=== PATIENT | female | born 1970 | race Caucasian/White ===

== ENCOUNTER 2017-01-10 06:33 | Day surgery (SDC) | payer BC ==
[2017-01-06 19:26] VITALS: BMI 24.9
--- NOTE | 2017-01-10 06:18 | HP ---
History & Physical Update - History History: No Change - Physical Physical: No Change - Assessment Assessment: No Change - Plan Plan: No Change
[~2017-01-10 06:33] MED LIST: ACETYLCHOLINE 1:100 INTRA-OCUL 20 MG/2 ML KIT IO ONE; BSS (NA/CA/MG/K) BALANCED SALT SOLUTION OPHTH SOLN 15 ML BOTTLE OS ONE; CHONDROITIN SU A/HYALUR SOD 1 KIT IO ONE; EPINEPHrine/PF 1 MG/1 ML (1:1,000) AMPULE SQ ONE; LIDOCAINE HCL 1% PRESERVATIVE FREE - 30ML VIAL IO ONE; POVIDONE-IODINE 5% OPHTHALMIC PREP 30 ML SOLUTION OS ONE; TETRACAINE 0.5% OPHTH SOLN 2 ML BOTTLE OS ONE; TOBRA 0.3%/DEXAMETH 0.1% OPHTHALMIC SUSP 2.5 ML BTL TP ONE
[2017-01-10] MEDS: MOXIFLOXACIN HCL 0.5% OPHTHALMIC 3 ML BOTTLE OP SCH ×3 (07:00→07:30)
[2017-01-10] MEDS: TROPICAMIDE 1% OPHTH SOLN 15 ML BOTTLE OP SCH ×3 (07:00→07:30)
[2017-01-10] MEDS: PHENYLEPHRINE 2.5% OPHTH SOLN 15 ML BOTTLE OP SCH ×3 (07:00→07:30)
[2017-01-10] MEDS: CYCLOPENTOLATE HCL 1% OPHTH SOLN 2 ML BOTTLE OP SCH ×3 (07:00→07:30)
[2017-01-10] MEDS ORDERED: TOBRA 0.3%/DEXAMETH 0.1% OPHTHALMIC SUSP 2.5 ML BTL ONE (07:13)
[2017-01-10] MEDS ORDERED: EPINEPHrine/PF 1 MG/1 ML (1:1,000) AMPULE ONE (07:13)
[2017-01-10] MEDS ORDERED: TETRACAINE 0.5% OPHTH SOLN 2 ML BOTTLE ONE (07:14)
[2017-01-10] MEDS ORDERED: LIDOCAINE HCL/PF 1% SDV 5ML VIAL ONE (07:14)
[2017-01-10] MEDS ORDERED: POVIDONE-IODINE 5% OPHTHALMIC PREP 30 ML SOLUTION ONE (07:14)
[2017-01-10 07:34] VITALS: TEMP 98
[2017-01-10] MEDS ORDERED: MIDAZOLAM HCL 2 MG/2 ML SINGLE DOSE VIAL ONE ×2 (07:57→08:08)
[2017-01-10] MEDS ORDERED: TETRACAINE 0.5% OPHTH SOLN 2 ML BOTTLE OS ONE (08:11)
[2017-01-10] MEDS ORDERED: POVIDONE-IODINE 5% OPHTHALMIC PREP 30 ML SOLUTION OS ONE (08:13)
[2017-01-10] MEDS ORDERED: BSS (NA/CA/MG/K) BALANCED SALT SOLUTION OPHTH SOLN 15 ML BOTTLE OS ONE (08:18)
[2017-01-10] MEDS ORDERED: LIDOCAINE HCL 1% PRESERVATIVE FREE - 30ML VIAL IO ONE (08:19)
[2017-01-10] MEDS ORDERED: CHONDROITIN SU A/HYALUR SOD 1 KIT IO ONE (08:19)
[2017-01-10] MEDS ORDERED: EPINEPHrine/PF 1 MG/1 ML (1:1,000) AMPULE SQ ONE (08:19)
[2017-01-10] MEDS ORDERED: ACETYLCHOLINE 1:100 INTRA-OCUL 20 MG/2 ML KIT IO ONE (08:57)
[2017-01-10] MEDS ORDERED: TOBRA 0.3%/DEXAMETH 0.1% OPHTHALMIC SUSP 2.5 ML BTL TP ONE (08:59)
[2017-01-10] MEDS ORDERED: acetaZOLAMIDE 250 MG TABLET ONE (09:18)
[2017-01-10] MEDS ORDERED: ACETAMINOPHEN 325 MG TABLET (FP) ONE (09:21)
[2017-01-10] MEDS ORDERED: ACETYLCHOLINE 1:100 INTRA-OCUL 20 MG/2 ML KIT ONE (10:01)
[2017-01-10 11:43] VITALS: BP 119/65; PULSE 67
--- NOTE | 2017-01-11 00:18 | OP ---
DATE OF OPERATION: 01/10/2017 SURGEON: Ilia Lara M.D. PREOPERATIVE DIAGNOSIS: Cataract, left eye. OPERATION: Phacoemulsification and intraocular lens implantation left eye. POSTOPERATIVE DIAGNOSIS: Cataract, left eye. ANESTHESIA: Topical. COMPLICATIONS: None. BLOOD LOSS: None. SPECIMEN: None. BRIEF HISTORY: The patient is a 46-year-old woman with a past medical history of diabetes who presented with decreased vision in the left eye down to 20/400 due to a 1 to 2+ nuclear sclerotic lens with temporal anterior cortical changes and a posterior subcaspular cataract. The patient also has a history of diabetic retinopathy for which she has had intravitreal injections. After the risks, benefits, and alternatives to cataract surgery were discussed with the patient she consented to surgery for the left eye. DESCRIPTION OF PROCEDURE: The patient was brought to the operating room and prepped and draped in the usual sterile fashion. An eyelid speculum was inserted in the left eye. Paracentesis was made, and the anterior chamber was inflated with operative lidocaine. This was followed by injection of Viscoat. A groove was made in the supratemporal clear cornea, which was tunneled forward with a crescent blade. The anterior chamber was entered with a 2.75 keratome. The cystotome was used to make an incision in the center of the capsule and a continuous curvilinear capsulorrhexis was created. The lens was hydrodissected until it was found to rotate freely within the capsular bag. Phacoemulsification was then used to remove the lens in its entirety. At this point it was noted that there was a localized posterior capsular tear in the area of the wound. There appeared to be no vitreous from this area. Irrigation and aspiration was done. The anterior chamber and sulcus area were refilled with Provisc, and a 22.0 diopter MA60AC lens was folded and placed in sulcus without incident. Irrigation and aspiration to remove residual viscoelastic. The wound was stromally hydrated. Two 10-0 nylon sutures were placed at the wound. Miochol was injected into the eye and the pupil was found to constrict round with no peaking. The wound was found to be watertight and the eye was in appropriate pressure. The eyelid speculum was removed from the eye. Tobradex drops and a clear shield were placed over the left eye. The patient was transferred to the recovery room in stable condition and will follow up tomorrow. Donn [id number] MTDD
== END 2017-01-10 11:43 | disposition home or self-care (01) ==
LOC: JASU-SURG 06:33
PROVIDERS: ATTEND Ophthalmology
PROC: 08RK3JZ Replacement of Left Lens with Synthetic Substitute, Percutaneous Approach (ICD-10-PCS; principal; 2017-01-10 08:00)
DX: H25.12 Age-related nuclear cataract, left eye (principal); E11.319 Type 2 diabetes mellitus with unspecified diabetic retinopathy without macular edema
CPT/HCPCS: 84703

== ENCOUNTER 2017-10-02 14:30 | Emergency (ER) | payer BC ==
[2017-10-02 14:42] VITALS: TEMP 98.3; BMI 26.8
--- NOTE | 2017-10-02 14:42 | PDOC ---
Rapid Medical Evaluation Time Seen by Provider: 10/02/17 14:40 Medical Evaluation: Allergies Allergy/AdvReac Type Severity Reaction Status Date / Time morphine Allergy Intermediate Hives Verified 10/02/17 14:37 10/02/17 14:41 Pt presents to the ED: shaky and anxious Pt on brief exam: Tachy 119, other VSS Pt ordered for : tsh, cbc, ua,ekg Pt to proceed to the ED Discharge Disposition - Diagnosis Shakiness - Referrals - Patient Instructions - Post Discharge Activity
[2017-10-02 15:03] LABS: URINE APPEARANCE CLEAR; URINE BILIRUBIN NEGATIVE (NEGATIVE); URINE BLOOD NEGATIVE (NEGATIVE); URINE COLOR COLORLESS; URINE GLUCOSE (UA) 3+ (NEGATIVE); URINE KETONE TRACE (NEGATIVE); URINE LEUK ESTERASE NEGATIVE (NEGATIVE); URINE NITRITE NEGATIVE (NEGATIVE); URINE PROTEIN NEGATIVE (NEGATIVE); URINE UROBILINOGEN NEGATIVE mg/dL (0.2-1.0)
[2017-10-02 15:11] LABS: BASO % 0.9 % (0-2.0); EOS % 2.1 % (0-4.5); HEMATOCRIT 44.1 % (32.4-45.2); HEMOGLOBIN 14.1 GM/dL (10.7-15.3); LYMPH % 28.3 % (8-40); MCH 27.3 pg (25.7-33.7); MCHC 32.1 g/dl (32.0-36.0); MEAN CELL VOLUME 85.3 fl (80-96); MEAN PLT VOLUME 9.2 fl (7.5-11.1); MONO % 7.5 % (3.8-10.2); NEUT % 61.2 % (42.8-82.8); PLATELET COUNT 196 K/MM3 (134-434); RBC 5.17 M/mm3 (3.60-5.2); RDW 16.6 % (11.6-15.6); WHITE BLOOD COUNT 7.2 K/mm3 (4.0-10.0)
[2017-10-02 15:26] LABS: ALBUMIN 4.1 g/dl (3.4-5.0); ANION GAP 13 (8-16); BLOOD UREA NITROGEN 27 mg/dL (7-18); CALCIUM 9.8 mg/dL (8.5-10.1); CHLORIDE 100 mmol/L (98-107); CO2 24 mmol/L (21-32); CREATININE 0.8 mg/dL (0.55-1.02); GLUCOSE,RANDOM 118 mg/dL (74-106); POTASSIUM 3.8 mmol/L (3.5-5.1); SGOT/AST 28 U/L (15-37); SODIUM 137 mmol/L (136-145); TOT PROT 8.3 g/dl (6.4-8.2)
[2017-10-02 15:57] LABS: ALK PHOS 105 U/L (45-117); BILIRUBIN,TOTAL 0.3 mg/dL (0.2-1.0); SGPT/ALT 49 U/L (12-78)
--- NOTE | 2017-10-02 16:07 | PDOC ---
History of Present Illness <Cristhian Joshua - Last Filed: 10/02/17 16:02> - General History Source: Patient Exam Limitations: No Limitations - History of Present Illness Initial Comments: 10/02/17 16:19 The patient is a 46 year old female with a significant PMH of diabetes who presents to the emergency department complaining of anxiety, jitters and lightheadedness since approximately 1PM today. The patient reports she had similar symptoms in addition to generalized malaise on 09/22/17 prompting her to take one week off from work and was returning to work today. The patient states she has been drinking fluids and eating soups during that time. The patient states she was in her usual state of health until 1PM today. The patient states she feels comfortable at home and reports no other stressors aside from work. The patient notes she has been feeling stressed at work since this is a busy time of year. The patient states she has had panic attacks in the past that resolved on their own. The patient denies LOC, chest pain, shortness of breath, headache and dizziness. Denies fever, chills, nausea, vomit , diarrhea and constipation. Denies dysuria, frequency, urgency and hematuria. The patient reports her sister has a history of depression but no other significant family history noted. The patient states she sees an refractory repairer regularly and was told her thyroid levels were normal. Allergies: NKA Past surgical history: None reported. Social history: No reported alcohol, drug, or cigarette use, PCP: Dr. Sierra <Sandra Lieberman - Last Filed: 10/02/17 16:38> - General Chief Complaint: Weakness Stated Complaint: ANXIETY/WEAKNESS Time Seen by Provider: 10/02/17 14:40 Past History - Past Medical History COPD: No Diabetes: Yes (type 2) - Surgical History Cholecystectomy: Yes - Suicide/Smoking/Psychosocial Hx Smoking History: Never smoked Have you smoked in the past 12 months: No Hx Alcohol Use: No Drug/Substance Use Hx: No <Cristhian Joshua - Last Filed: 10/02/17 16:02> <Sandra Lieberman - Last Filed: 10/02/17 16:38> - Past Medical History Allergies/Adverse Reactions: Allergies Allergy/AdvReac Type Severity Reaction Status Date / Time morphine Allergy Intermediate Hives Verified 10/02/17 14:37 Home Medications: Ambulatory Orders Multivitamin [One-A-Day Essential] 1 each PO DAILY #0 tablet 12/27/13 Biotin 1,000 mcg PO DAILY 01/06/17 Canagliflozin [Invokana] 300 mg PO ACBK 01/06/17 Glimepiride [Amaryl] 1 mg PO HS 01/06/17 Sitagliptin Phos/Metformin HCl [Janumet 50-1,000 mg Tablet] 1 each PO BID Alprazolam [Xanax] 0.25 mg PO Q8H PRN #7 tablet MDD 3 10/02/17 Review of Systems - Review of Systems Constitutional: No: Chills, Fever, Night Sweats, Unintentional Wgt. Loss HEENTM: No: Nose Congestion, Throat Swelling Respiratory: No: Cough, Shortness of Breath Cardiac (ROS): Yes: Palpitations. No: Chest Pain, Syncope ABD/GI: No: Diarrhea, Vomiting : No: Burning, Hematuria Neurological: No: Headache, Tingling, Weakness Psychiatric: Yes: Anxiety. No: Depression Endocrine: No: Unexplained Weight Gain, Unexplained Weight Loss All Other Systems: Reviewed and Negative <Cristhian Joshua - Last Filed: 10/02/17 16:02> *Physical Exam - Vital Signs Last Vital Signs Temp Pulse Resp BP Pulse Ox 98.3 F 119 H 19 155/95 100 10/02/17 14:38 10/02/17 14:38 10/02/17 14:38 10/02/17 14:38 10/02/17 14:38 <Cristhian Joshua - Last Filed: 10/02/17 16:02> - Vital Signs Last Vital Signs Temp Pulse Resp BP Pulse Ox 98.3 F 119 H 19 155/95 100 10/02/17 14:38 10/02/17 14:38 10/02/17 14:38 10/02/17 14:38 10/02/17 14:38 - Physical Exam Comments: 10/02/17 16:20 GENERAL: The patient is awake, alert, and fully oriented, in no acute distress. HEAD: Normal with no signs of trauma. EYES: Pupils equal, round and reactive to light, extraocular movements intact, sclera anicteric, conjunctiva clear with no pallor. ENT: Ears normal, nares patent, oropharynx clear without exudates. Moist mucous membranes. NECK: (+) Thyroid is normal size. No nodules. Normal range of motion, supple without lymphadenopathy, JVD, or masses. LUNGS: Breath sounds equal, clear to auscultation bilaterally. No wheeze/ crackles. HEART: Regular rate and rhythm, normal S1 and S2 without murmur or rub. ABDOMEN: Soft/nontender/nondistended. BS wnl. No guarding or rebound. No palpable masses. No hepatosplenomegaly. EXTREMITIES: Normal range of motion, no leg swelling. No clubbing or cyanosis. No cords, erythema, or tenderness. NEUROLOGICAL: Cranial nerves II through XII grossly intact. Normal speech, normal gait. PSYCH: Normal mood, normal affect. SKIN: Warm, Dry, normal turgor, no rashes or lesions noted. <Sandra Lieberman - Last Filed: 10/02/17 16:38> Heart Score/ECG Review #1 ECG reviewed & interpreted by me at: 14:45 General ECG Interpretation: Sinus Rhythm, Normal Rate (slight tachy at 106), Normal Intervals (qrs 80, qtc 470), No acute ischemic changes <Cristhian Joshua - Last Filed: 10/02/17 16:02> ED Treatment Course - LABORATORY CBC & Chemistry Diagram: 10/02/17 14:55 10/02/17 14:55 - ADDITIONAL ORDERS Additional order review: Laboratory Results 10/02/17 10/02/17 14:55 14:55 Sodium 137 Potassium 3.8 Chloride 100 Carbon Dioxide 24 Anion Gap 13 BUN 27 H Creatinine 0.8 Creat Clearance w eGFR > 60 Random Glucose 118 H Calcium 9.8 Total Bilirubin 0.3 AST 28 ALT 49 Alkaline Phosphatase 105 D Total Protein 8.3 H Albumin 4.1 Urine Color Colorless Urine Appearance Clear Urine pH 5.0 Ur Specific [place] 1.001 Urine Protein Negative Urine Glucose (UA) 3+ H Urine Ketones Trace H Urine Blood Negative Urine Nitrite Negative Urine Bilirubin Negative Urine Urobilinogen Negative Ur Leukocyte Esterase Negative 10/02/17 14:55 RBC 5.17 MCV 85.3 MCHC 32.1 RDW 16.6 H MPV 9.2 Neutrophils % 61.2 Lymphocytes % 28.3 Monocytes % 7.5 Eosinophils % 2.1 Basophils % 0.9 <Cristhian Joshua - Last Filed: 10/02/17 16:02> - LABORATORY CBC & Chemistry Diagram: 10/02/17 14:55 10/02/17 14:55 - ADDITIONAL ORDERS Additional order review: Laboratory Results 10/02/17 10/02/17 14:55 14:55 Sodium 137 Potassium 3.8 Chloride 100 Carbon Dioxide 24 Anion Gap 13 BUN 27 H Creatinine 0.8 Creat Clearance w eGFR > 60 Random Glucose 118 H Calcium 9.8 Total Bilirubin 0.3 AST 28 ALT 49 Alkaline Phosphatase 105 D Total Protein 8.3 H Albumin 4.1 Urine Color Colorless Urine Appearance Clear Urine pH 5.0 Ur Specific [place] 1.001 Urine Protein Negative Urine Glucose (UA) 3+ H Urine Ketones Trace H Urine Blood Negative Urine Nitrite Negative Urine Bilirubin Negative Urine Urobilinogen Negative Ur Leukocyte Esterase Negative 10/02/17 14:55 RBC 5.17 MCV 85.3 MCHC 32.1 RDW 16.6 H MPV 9.2 Neutrophils % 61.2 Lymphocytes % 28.3 Monocytes % 7.5 Eosinophils % 2.1 Basophils % 0.9 <Sandra Lieberman - Last Filed: 10/02/17 16:38> Medical Decision Making - Medical Decision Making 10/02/17 16:03 A portion of this note was documented by scribe services under my direction. I have reviewed the details of the note, within reason, and agree with the documentation with the following case summary and management plan written by me. 46-year-old female with history of diabetes presents with palpitations and anxiety. Patient has been in her usual state of health, left work about 10 days ago with anxiety and generalized malaise, stay home last week and return to work today feeling well around lunchtime became anxious and jittery again, prompting ED visit. No chest pain or difficulty breathing, no infectious complaints, review of systems otherwise negative. Feels better now. Admits to having anxiety and anxiety attacks in the past, sister has depression with the patient herself has no symptoms of depression. Has never taken daily medications for anxiety or depression, feels fine at this time. No exercise limitations at baseline, no PE risk factors. Vital signs stable, heart rate improved to 80 on my examination Well-appearing, affect is normal making good eye contact, smiling Exam is otherwise normal as outlined 46-year-old female with likely anxiety/panic attack. Given underlying diabetes, labs sent to rule out cardiopulmonary or metabolic process and they are within normal limits except for glucose in the urine. EKG shows sinus mild tachycardia at triage, no ischemia. TSH is pending the patient states she has her thyroid checked every few months and it was normal with her refractory repairer in August. Feels comfortable going home at this time, we'll give brief Xanax prescription as needed with precautions, understands return criteria. <Cristhian Joshua - Last Filed: 10/02/17 16:02> *DC/Admit/Observation/Transfer <Cristhian Joshua - Last Filed: 10/02/17 16:02> - Attestations Scribe Attestion: 10/02/17 16:20 Documentation prepared by Sandra Lieberman, acting as medical claims processor for Cristhian Joshua MD. <Sandra Lieberman - Last Filed: 10/02/17 16:38> Diagnosis at time of Disposition: Shakiness, Anxiety attack - Discharge Dispostion Disposition: HOME Condition at time of disposition: Improved - Prescriptions Prescriptions: Alprazolam [Xanax] 0.25 mg PO Q8H PRN #7 tablet MDD 3 PRN Reason: Anxiety - Referrals Referrals: Windy Sierra MD [Primary Care Provider] - - Patient Instructions Printed Discharge Instructions: DI for Anxiety -- Adult Additional Instructions: Activity as tolerated. Stay well hydrated and continue to monitor your sugar levels. Blood tests and an EKG today showed no acute abnormalities. As discussed, your symptoms could be due to anxiety/anxiety attack. Continue your medications as previously prescribed by your physician. Take Xanax as prescribed only as needed for anxiety. Xanax can make you lightheaded, so take proper precautions. You should follow up with your primary doctor as soon as possible regarding today's emergency department visit. Return to the emergency department for any new or concerning symptoms, particularly persistent or worsening symptoms, chest pain or shortness of breath , fever/chills, severe anxiety/depression. - Post Discharge Activity Forms/Work/School Notes: Back to Work
[2017-10-02 16:40] VITALS: BP 117/76; PULSE 99
--- NOTE | 2017-10-02 16:48 | EKG ---
Test Reason : Blood Pressure : / mmHG Vent. Rate : 106 BPM Atrial Rate : 106 BPM P-R Int : 158 ms QRS Dur : 080 ms QT Int : 354 ms P-R-T Axes : 056 030 049 degrees QTc Int : 470 ms SINUS TACHYCARDIA POSSIBLE LEFT ATRIAL ENLARGEMENT BORDERLINE ECG WHEN COMPARED WITH ECG OF 28-DEC-2016 07:44, NO SIGNIFICANT CHANGE WAS FOUND Confirmed by MIGUEL DOLL MD ([id number]) on 10/02/2017 4:48:15 PM Referred By: Confirmed By:MIGUEL DOLL MD
== END 2017-10-02 16:40 | disposition home or self-care (01) ==
LOC: JER 14:30
DX: F41.9 Anxiety disorder, unspecified (principal); E11.9 Type 2 diabetes mellitus without complications; Z79.84 Long term (current) use of oral hypoglycemic drugs
CPT/HCPCS: 36415; 80053; 81003; 84443; 85025; 93005; 93010; 99283-25

== ENCOUNTER 2018-08-27 13:43 | Emergency (ER) | payer BC ==
[2018-08-27 13:47] VITALS: BP 119/80; PULSE 102; TEMP 98.1; BMI 28.7
--- NOTE | 2018-08-27 13:59 | PDOC ---
History of Present Illness - General Chief Complaint: Injury Stated Complaint: right foot pain and swelling s/p fall Time Seen by Provider: 08/27/18 13:59 - History of Present Illness Initial Comments: 08/27/18 14:08 pt presents to the ED complaining of R ankle pain after fall yesterday. Ambulatory after the fall with limp. Presents today because the ankle is more swollen and she is unable to weight bear. 08/27/18 14:14 Past History - Past Medical History Allergies/Adverse Reactions: Allergies Allergy/AdvReac Type Severity Reaction Status Date / Time morphine Allergy Intermediate Hives Verified 08/27/18 13:52 Home Medications: Ambulatory Orders Multivitamin [One-A-Day Essential] 1 each PO DAILY #0 tablet 12/27/13 Biotin 1,000 mcg PO DAILY 01/06/17 Glimepiride [Amaryl] 2 mg PO HS 01/06/17 Alprazolam [Xanax] 0.25 mg PO Q8H PRN #7 tablet MDD 3 10/02/17 Cholecalciferol (Vitamin D3) [Vitamin D] 2,000 unit PO DAILY 08/27/18 Dulaglutide [Trulicity] 1.5 mg SQ WEEKLY 08/27/18 Empagliflozin [Jardiance] 25 mg PO DAILY 08/27/18 Ergocalciferol (Vitamin D2) [Vitamin D2] 50,000 unit PO WEEKLY 08/27/18 Losartan Potassium [Cozaar -] 25 mg PO DAILY 08/27/18 Metformin HCl [Glucophage] 1,000 mg PO BID 08/27/18 COPD: No Diabetes: Yes (type 2) HTN: Yes - Surgical History Cholecystectomy: Yes - Suicide/Smoking/Psychosocial Hx Smoking History: Never smoked Have you smoked in the past 12 months: No Hx Alcohol Use: No Drug/Substance Use Hx: No Substance Use Type: None Review of Systems - Review of Systems Is the patient limited Malaysian proficient: No Musculoskeletal: Yes: Symptoms Reported, Joint Pain All Other Systems: Reviewed and Negative *Physical Exam - Vital Signs Last Vital Signs Temp Pulse Resp BP Pulse Ox 98.1 F 102 H 18 119/80 100 08/27/18 13:44 08/27/18 13:44 08/27/18 13:44 08/27/18 13:44 08/27/18 13:44 - Physical Exam General Appearance: Yes: Nourished, Appropriately Dressed (R ankle: + ecchymosis and tenderness over the lateral malleolus. No tenderness at the medial malleolus or at the base of the 5th metatarsal. No mid foot tenderness. Full ROM.) Moderate Sedation - Procedure Monitoring Vital Signs: Procedure Monitoring Vital Signs Temperature 98.1 F 08/27/18 13:44 Pulse Rate 102 H 08/27/18 13:44 Respiratory Rate 18 08/27/18 13:44 Blood Pressure 119/80 08/27/18 13:44 O2 Sat by Pulse Oximetry (%) 100 08/27/18 13:44 Medical Decision Making - Medical Decision Making 08/27/18 14:17 Pt presents to the ED complaining of R ankle pain and swelling after falling and twisting her ankle. Denies other injuries. Fracture vs sprain. Will check xrays of the R foot and ankle and reassess. *DC/Admit/Observation/Transfer Diagnosis at time of Disposition: Closed right fibular fracture Qualifiers: Encounter type: initial encounter Fibula location: lateral malleolus Fracture alignment: nondisplaced Qualified Code(s): S82.64XA - Nondisplaced fracture of lateral malleolus of right fibula, initial encounter for closed fracture - Discharge Dispostion Disposition: HOME Condition at time of disposition: Good Decision to Admit order: No - Referrals Referrals: Marvel Irene MD [Staff Physician] - - Patient Instructions Printed Discharge Instructions: How to Use Crutches, Fibula Shaft Fracture Additional Instructions: Please use the crutches as we instructed you to. Please follow up with the orthopedic doctors today or tomorrow morning. Please use Tylenol or Motrin for your pain. Please return if you have new or worsneing pain or other symptoms. - Post Discharge Activity
== END 2018-08-27 15:23 | disposition home or self-care (01) ==
LOC: FER 13:43
DX: S82.64XA Nondisplaced fracture of lateral malleolus of right fibula, initial encounter for closed fracture (principal); W18.39XA Other fall on same level, initial encounter; Y93.89 Activity, other specified; Y92.89 Other specified places as the place of occurrence of the external cause
CPT/HCPCS: 73610-TC-RT-FY; 73630-TC-RT-FY; 99282-25

== ENCOUNTER 2018-08-29 09:57 | Day surgery (SDC) | payer BC ==
[2018-08-28 10:42] VITALS: BMI 28.7
--- NOTE | 2018-08-29 09:35 | HP ---
[facility] - Chief Complaint Chief Complaint: right ankle fx - Past Medical History Allergies/Adverse Reactions: Allergies Allergy/AdvReac Type Severity Reaction Status Date / Time morphine Allergy Intermediate Hives Verified 08/27/18 13:52 Gastrointestinal: Yes: Constipation, Other (see HPI) Hepatobiliary: Yes: Other (gallblader removed in 1993) ...LMP: 09/25/16 ...LMP Comment: menopause Endocrine: Yes: Diabetes Mellitus (see HPI), Other (had recent workup with blodwork in Endocrinology office on 12/21/13 see HPI. Her Glimepiride was stopped 1 week ago for low sugars and she is on Metformin 1000 mg po bid and Tradjenta (linagliptine) 5 mg/day.) - Current Medications Current Medications: Home Medications Medication Instructions Recorded Multivitamin [One-A-Day Essential] 1 each PO DAILY #0 tablet 12/27/13 Biotin 1,000 mcg PO DAILY 01/06/17 Glimepiride [Amaryl] 2 mg PO HS 01/06/17 Alprazolam [Xanax] 0.25 mg PO Q8H PRN #7 tablet MDD 3 10/02/17 Cholecalciferol (Vitamin D3) 2,000 unit PO DAILY 08/27/18 [Vitamin D3] Dulaglutide [Trulicity] 1.5 mg SQ WEEKLY 08/27/18 Empagliflozin [Jardiance] 25 mg PO DAILY 08/27/18 Ergocalciferol (Vitamin D2) 50,000 unit PO WEEKLY 08/27/18 [Vitamin D2] Losartan Potassium [Cozaar -] 25 mg PO DAILY 08/27/18 Metformin HCl [Glucophage] 1,000 mg PO BID 08/27/18 Oxycodone HCl/Acetaminophen 1 - 2 tab PO Q6H #30 tab MDD 6 08/29/18 [Percocet 5-325 mg Tablet] Satellite Physical Exam - Physical Examination General Appearance: Well Nourished, Well Developed, Alert & Oriented x3 ENT: Clear Lung: Normal air movement Heart: Regular rate & rhythm Extremities: Other (right ankle- splint intact, + ttp, + swelling, nvi) Neurological: Intact, Alert, Oriented Satellite Impression/Plan - Impression/Plan Impression: right ankle fx Operative Procedure: right ankle orif Date to be Performed: 08/29/18
[2018-08-29] MEDS ORDERED: MIDAZOLAM HCL 2 MG/2 ML SINGLE DOSE VIAL ONE ×2 (10:12)
[2018-08-29] MEDS ORDERED: BUPIVACAINE HCL/PF 0.5% (5MG/ML) 10 ML VIAL ONE (10:14)
[2018-08-29] MEDS ORDERED: DEXAMETHASONE SOD PHOSPHATE/PF 10 MG/ML SDV ONE (10:14)
[2018-08-29] MEDS ORDERED: oxyCODONE HCL 5 MG TABLET PO PRN ×2 (10:22)
[2018-08-29] MEDS ORDERED: ONDANSETRON 4 MG/2 ML VIAL IVPUSH PRN (10:22)
[2018-08-29] MEDS ORDERED: LACTATED RINGERS SOLUTION 1,000 ML IV SCH (10:30)
[2018-08-29] MEDS ORDERED: SODIUM CHLORIDE 0.9% P/F 10 ML VIAL IJ ONE (10:44)
[2018-08-29] MEDS ORDERED: ceFAZolin SODIUM 1 GM VIAL ONE (10:44)
[2018-08-29] MEDS ORDERED: DEXAMETHASONE SOD PHOSPHATE 4 MG/1 ML VIAL ONE (10:44)
[2018-08-29] MEDS ORDERED: LIDOCAINE HCL/PF 2% SDV 5ML VIAL ONE (10:44)
[2018-08-29] MEDS ORDERED: PROPOFOL 20 ML ONE ×5 (10:47→12:47)
[2018-08-29] MEDS ORDERED: KETAMINE HCL 200 MG/20 ML VIAL ONE (12:02)
--- NOTE | 2018-08-29 13:10 | OP ---
Operative Note - Note: Operative Date: 08/29/18 ([facility]) Pre-Operative Diagnosis: right ankle fx Operation: right ankle orif Post-Operative Diagnosis: Same as Pre-op Surgeon: Felipe Dawson Cash Accounting Clerk: Luis F Alexandra Anesthesiologist/PIPE STRIPPER: Ray Rose Anesthesia: General, Local Estimated Blood Loss (mls): 0 (tourniquet) Operative Report Dictated: Yes
[2018-08-29] MEDS ORDERED: ACETAMINOPHEN 1000 MG/100 ML VIAL (NON FORMULARY) IVPB ONE (13:21)
[2018-08-29] MEDS ORDERED: ONDANSETRON 4 MG/2 ML VIAL ONE (13:22)
[2018-08-29] MEDS ORDERED: KETOROLAC TROMETHAMINE 30 MG/1 ML VIAL IVPUSH ONE (13:23)
[2018-08-29] MEDS ORDERED: oxyCODONE HCL 5 MG TABLET ONE (14:23)
[2018-08-29 17:52] VITALS: PULSE 100
[2018-08-29 18:03] VITALS: BP 119/74; TEMP 98.1
--- NOTE | 2018-08-30 08:03 | OP ---
DATE OF OPERATION: 08/29/2018 PREOPERATIVE DIAGNOSIS: Right ankle bimalleolar fracture. POSTOPERATIVE DIAGNOSIS: Right ankle bimalleolar fracture. PROCEDURE: Right ankle bimalleolar open reduction internal fixation. SURGEON: Collins Aldana MD SCALEMAKER: PORSHA Tinajero. PARKING METER INSTALLER: Ray Rose CRNA ANESTHESIA: Right lower extremity regional block with LMA anesthesia. DRAINS: None. COMPLICATIONS: None. SPECIMEN: None. BLOOD LOSS: None. BLOOD GIVEN: None. FLUID REPLACEMENT: 700 mL. INDICATIONS: This patient is a 47-year-old female with a preoperative diagnosis of a right ankle bimalleolar ankle fracture. After understanding the potential risks, complications, alternatives, and benefits of surgery versus nonsurgical treatment, the patient elected to undergo this procedure. The patient and her family understand her ankle may never be perfect. It may stay swollen forever. She may have problems with stiffness, chronic pain, there is a lifelong risk of infection, she may need additional surgery, and she is at high risk of posttraumatic arthritis. DESCRIPTION OF PROCEDURE: The patient was brought to the operating room. Peripheral IV placed. IV sedation was given. A right lower extremity block was performed. LMA anesthesia was induced. The right lower extremity was prepped and draped in sterile fashion, elevated, exsanguinated with an Esmarch bandage. Tourniquet was inflated to 275 mmHg. A bump was placed under the right hemipelvis. A longitudinal incision was marked out with a marking pen and made with a No. 15 scalpel blade. Subcutaneous hemostasis was achieved with a Bovie cautery. Dissection was done down to the mid axis of the distal fibula with the Bovie cautery. There was a small fracture hematoma which was evacuated. A fracture site was opened up slightly and irrigated and washed out. It was cleaned with a curette. Hematoma and soft tissue debris were removed from the fracture site. Once this was done, I was able to choose one alligator clamp and do an anatomic reduction. It came together quite nicely. I could not see or feel the fracture site at that point. X-rays were taken confirming excellent anatomic reduction of both the fibula and the medial malleolus. Next, a lag screw was put in the standard fashion using the 3.5-mm drill bit to over-drill the proximal cortex and 2.5-mm drill bit through both cortices, and a fully threaded non-locking 16-mm screw was placed holding it in place. Once the lag screw was in, the clamp was removed, and it held position. Next, a 4-hole titanium low-profile, pre-contoured Phu distal fibular plate was applied and held in place with 2 K-wires. X-rays were taken. It looked quite good in all planes, and therefore using the standard technique, first I put in one distal and one proximal fully threaded, non-locking screw, repeated x-rays, and then put in 3 more proximal bicortical fully threaded locking screws and 4 more distal locking fully threaded unicortical screws. X-rays were taken along the way as well as at the end. Final x-rays were taken in the AP, lateral, and multiple oblique planes. It showed anatomic reduction of the distal fibular fracture and the ankle mortise and the medial malleolus was held in an anatomic position without metallic fixation. Final x-rays were taken in all planes. The area was then copiously irrigated and washed out. Then, 0 Vicryl was used to close the deep fascial layer directly over the fibular plate and fracture site, 2-0 Vicryl was used to close the deep dermal layer, and final skin reapproximation was done with a row of paula. The area was then washed and dried and covered with Xeroform gauze, 4x4 gauze, Webril, and a 6-inch Ortho-Glass posterior splint was applied holding the ankle in a position of mild dorsiflexion and inversion to put compression on the medial malleolus fracture site. It was then wrapped with 3 CECILIA bandages. The tourniquet was taken down after a total tourniquet time of 28 minutes. There were no complications during the case. The patient tolerated the procedure quite well and was brought to the ambulatory recovery room in stable condition. COLLINS ALDANA M.D. [id number]
== END 2018-08-29 18:03 | disposition home or self-care (01) ==
LOC: JASU-SURG 09:57
PROVIDERS: ATTEND Orthopaedic Surgery
PROC: 0QSG04Z Reposition Right Tibia with Internal Fixation Device, Open Approach (ICD-10-PCS; principal; 2018-08-29 11:00)
DX: S82.841A Displaced bimalleolar fracture of right lower leg, initial encounter for closed fracture (principal); X58.XXXA Exposure to other specified factors, initial encounter; Y93.9 Activity, unspecified; Y92.9 Unspecified place or not applicable; Y99.9 Unspecified external cause status
CPT/HCPCS: 76000-TC-FY; 82962; 94760; 97116-GP; J0131